=== PATIENT | female | born 1990 | race Caucasian/White ===

== ENCOUNTER → 2017-07-01 | Outpatient (CLI) | payer OTHER ==
--- NOTE | 2017-07-02 07:11 | HKNOTE ---
DATE OF SERVICE: 07/01/2017 MAIN COMPLAINT: Left knee pain. HISTORY OF PRESENT ILLNESS: This is a 26-year-old female complaining of severe left knee pain. She had a previous injury to her left knee. The pain is on the outside of the left knee. She has been seen by Dr. Arturo Gutierrez. She has attended 6 sessions of physical therapy with improvement of her pain. She denies any locking, catching or instability. She does not use any braces or assistive devices. She denies any hip or back pain. She has no other complaints. PHYSICAL EXAMINATION: GAIT: Nonantalgic gait. LEFT KNEE EXAM: Neutral alignment. Tender over the lateral joint line. Nontender over the medial joint line. 0-130 degrees range of motion. Negative anterior drawer. Negative posterior drawer. Positive Brendan's. Negative Geoff's. Neurovascular exam 5/5 strength of quadriceps, tibialis anterior, gastroc soleus, hamstrings with intact sensation to light touch and palpable pulses. IMAGING PROCEDURE: MRI, left knee: MRI of left knee demonstrates a complex tear of the posterior horn of the lateral meniscus. There are no tears seen in the medial meniscus. The cruciate ligaments are intact. IMPRESSION: A 26-year-old female with a left knee lateral meniscus tear. PLAN: The patient is improving with physical therapy. She will continue current physical therapy. She will follow up as needed. Dictated By: Marta Louie MD /[email or web address] /Document#: [id number]
== END | disposition home or self-care (01) ==
LOC: HKI 15:39
PROVIDERS: ATTEND Orthopaedic Surgery Adult Reconstructive Orthopaedic Surgery
DX: M23.252 Derangement of posterior horn of lateral meniscus due to old tear or injury, left knee (principal); M25.562 Pain in left knee
CPT/HCPCS: G0463